=== PATIENT | male | born 1970 | race Caucasian/White ===

== ENCOUNTER 2020-08-02 11:45 | Emergency (ER) | payer MEDICAID ==
[~2020-08-02] VITALS: Ht 170.2 cm; Wt 86.4 kg
[2020-08-02 12:55] LABS: COVID AG,FIA SOURCE NASOPHARYNGEAL
[2020-08-02 13:38] LABS: BASOPHILS % (AUTO) 1.6 % (0.0-2.0); EOSINOPHILS % (AUTO) 1.5 % (1.0-6.0); HEMATOCRIT 39.4 % (41-53); HEMOGLOBIN 13.4 g/dL (13.5-17.5); LYMPHOCYTES # (AUTO) 1.3 K/uL (1.0-4.8); LYMPHOCYTES % (AUTO) 27.5 % (22.0-44.0); MEAN CORPUSCULAR HEMOGLOBIN 33.5 pg (26.0-34.0); MEAN CORPUSCULAR VOLUME 99 fL (80-100); MONOCYTES # (AUTO) 0.4 K/uL (0.1-1.0); NEUTROPHILS # (AUTO) 2.9 K/uL (1.8-7.7); NEUTROPHILS % (AUTO) 61.4 % (40.0-70.0); RED CELL DISTRIBUTION WIDTH 14.8 % (11.5-14.5)
[2020-08-02 13:50] LABS: ANION GAP 6 mmol/L (8-16); CALCIUM, TOTAL 7.8 mg/dL (8.8-10.5); CARBON DIOXIDE 28 mmol/L (22-29); CHLORIDE 108 mmol/L (98-107); GLOMERULAR FILTR. RATE CALC > 60 mL/min (>60); GLUCOSE,RANDOM 111 mg/dL (70-110); POTASSIUM 3.7 mmol/L (3.5-5.1); SODIUM SERUM 142 mmol/L (136-145); UREA NITROGEN, BLOOD 10 mg/dL (7-18)
[2020-08-02 13:56] LABS: ALANINE AMINOTRANSFERASE 29 U/L (12-78); ALBUMIN 2.8 g/dL (3.4-5.0); ALKALINE PHOSPHATASE 116 U/L (46-116); ASPARTATE AMINOTRANSFERASE 64 U/L (15-37); BILIRUBIN,TOTAL 0.9 mg/dL (0.1-1.0); TOTAL PROTEIN, SERUM 7.5 g/dL (6.4-8.2)
[2020-08-02 14:20] LABS: PLATELET COUNT (AUTO) 94 K/uL (150-450)
[2020-08-02 17:22] VITALS: BP 115/79
== END 2020-08-02 17:24 | disposition home or self-care (01) ==
LOC: EMS 12:04
DX: R07.9 Chest pain, unspecified (principal); Z20.828 Contact with and (suspected) exposure to other viral communicable diseases
CPT/HCPCS: 36415; 71045; 80053; 84484; 85025; 87426; 93005; 99285; U0003

== ENCOUNTER 2021-03-08 18:16 | Emergency (ER) | payer MEDICAID ==
[~2021-03-08] VITALS: Ht 172.7 cm; Wt 86.4 kg
[2021-03-08] MEDS ORDERED: PERTUSS(ACELL),DIPH,TET VAC/PF 0.5 ML SYRINGE IM. ONE (19:45)
[2021-03-08 20:49] VITALS: BP 110/63
== END 2021-03-08 20:53 | disposition home or self-care (01) ==
LOC: EMS 18:19
DX: S81.811A Laceration without foreign body, right lower leg, initial encounter (principal); W22.8XXA Striking against or struck by other objects, initial encounter; Y93.89 Activity, other specified; Y92.89 Other specified places as the place of occurrence of the external cause; Y99.8 Other external cause status
CPT/HCPCS: 90471; 90715; 99283

== ENCOUNTER 2021-06-28 21:02 | Emergency (ER) | payer MEDICAID ==
[~2021-06-28] VITALS: Ht 170.2 cm; Wt 86.4 kg
[2021-06-28] MEDS ORDERED: SODIUM CHLORIDE 0.9% 1,000 ML IV ONE (22:15)
[2021-06-28] MEDS ORDERED: ONDANSETRON HCL 4 MG/2 ML VIAL IVP ONE (22:15)
[2021-06-28] MEDS ORDERED: MAG HYDROX/AL HYDROX/SIMETH ES 30 ML SUSPENSION UDCUP PO ONE (22:15)
[2021-06-28 22:29] LABS: EOSINOPHILS % (AUTO) 0.4 % (1.0-6.0); HEMATOCRIT 32.5 % (41-53); NEUTROPHILS # (AUTO) 3.5 K/uL (1.8-7.7)
[2021-06-28 22:38] LABS: BASOPHILS % (AUTO) 1.4 % (0.0-2.0); HEMOGLOBIN 10.9 g/dL (13.5-17.5); LYMPHOCYTES # (AUTO) 1.2 K/uL (1.0-4.8); LYMPHOCYTES % (AUTO) 22.2 % (22.0-44.0); MEAN CORPUSCULAR HEMOGLOBIN 31.9 pg (26.0-34.0); MEAN CORPUSCULAR HGB CONC 33.5 G/dL (31.0-37.0); MEAN CORPUSCULAR VOLUME 95 fL (80-100); MONOCYTES # (AUTO) 0.8 K/uL (0.1-1.0); MONOCYTES % (AUTO) 14.5 % (2.0-9.0); NEUTROPHILS % (AUTO) 61.5 % (40.0-70.0); RED BLOOD CELL COUNT(AUTO) 3.41 MIL/uL (4.50-5.90); RED CELL DISTRIBUTION WIDTH 17.1 % (11.5-14.5)
[2021-06-28 22:41] LABS: CALCIUM, TOTAL 7.5 mg/dL (8.8-10.5); CREATININE 1.32 mg/dL (0.60-1.30); POTASSIUM 3.6 mmol/L (3.5-5.1)
[2021-06-28 22:49] LABS: ALBUMIN 2.4 g/dL (3.4-5.0); BILIRUBIN,TOTAL 2.4 mg/dL (0.1-1.0)
[2021-06-28 23:18] LABS: PLATELET COUNT (AUTO) 61 K/uL (150-450)
[2021-06-29 02:16] LABS: GLUCOMETER DEV NAME(LOC) ERT.5; GLUCOSE,POINT OF CARE 117 MG/DL (70-110)
[2021-06-29 02:55] VITALS: BP 128/83
== END 2021-06-29 06:40 | disposition home or self-care (01) ==
LOC: EMS 21:05
DX: F10.129 Alcohol abuse with intoxication, unspecified (principal); Y90.8 Blood alcohol level of 240 mg/100 ml or more
CPT/HCPCS: 80053; 82962; 83690; 84484; 85025; 93005; 96361; 96374; 99284; G0480; J2405; 36415-L1; 36415-TC

== ENCOUNTER 2021-06-30 19:02 | Emergency (ER) | payer MEDICAID ==
[~2021-06-30] VITALS: Ht 170.2 cm; Wt 88.6 kg
[2021-06-30 21:39] LABS: ANION GAP 8 mmol/L (8-16); CALCIUM, TOTAL 7.5 mg/dL (8.8-10.5); CARBON DIOXIDE 28 mmol/L (22-29); CHLORIDE 111 mmol/L (98-107); CREATININE 1.12 mg/dL (0.60-1.30); GLOMERULAR FILTR. RATE CALC > 60 mL/min (>60); GLUCOSE,RANDOM 112 mg/dL (70-110); POTASSIUM 3.6 mmol/L (3.5-5.1); SODIUM SERUM 147 mmol/L (136-145); UREA NITROGEN, BLOOD 10 mg/dL (7-18)
[2021-06-30 21:43] LABS: EOSINOPHILS % (AUTO) 0.8 % (1.0-6.0); HEMATOCRIT 32.3 % (41-53); HEMOGLOBIN 10.8 g/dL (13.5-17.5); LYMPHOCYTES # (AUTO) 1.3 K/uL (1.0-4.8); LYMPHOCYTES % (AUTO) 25.7 % (22.0-44.0); MEAN CORPUSCULAR HEMOGLOBIN 31.7 pg (26.0-34.0); MEAN CORPUSCULAR HGB CONC 33.4 G/dL (31.0-37.0); MEAN CORPUSCULAR VOLUME 95 fL (80-100); MONOCYTES # (AUTO) 0.6 K/uL (0.1-1.0); MONOCYTES % (AUTO) 12.1 % (2.0-9.0); NEUTROPHILS # (AUTO) 2.9 K/uL (1.8-7.7); NEUTROPHILS % (AUTO) 59.4 % (40.0-70.0); PLATELET COUNT (AUTO) 59 K/uL (150-450); RED CELL DISTRIBUTION WIDTH 18.1 % (11.5-14.5)
[2021-06-30 21:52] LABS: ALANINE AMINOTRANSFERASE 40 U/L (12-78); ALBUMIN 2.4 g/dL (3.4-5.0); ALKALINE PHOSPHATASE 183 U/L (46-116); ASPARTATE AMINOTRANSFERASE 194 U/L (15-37); BILIRUBIN,TOTAL 2.5 mg/dL (0.1-1.0); TOTAL PROTEIN, SERUM 7.8 g/dL (6.4-8.2)
[2021-06-30 23:30] VITALS: BP 124/79
== END 2021-07-01 00:25 | disposition home or self-care (01) ==
LOC: EMS 19:02
DX: F10.129 Alcohol abuse with intoxication, unspecified (principal)
CPT/HCPCS: 36415; 80053; 84484; 85025; 93005; 99284; G0480

== ENCOUNTER 2021-07-01 19:35 | Emergency (ER) | payer MEDICAID ==
[~2021-07-01] VITALS: Ht 172.7 cm; Wt 88.6 kg
[2021-07-01 19:57] VITALS: BP 109/72
== END 2021-07-01 21:30 | disposition left against medical advice (07) ==
LOC: EMS 19:35
DX: F10.129 Alcohol abuse with intoxication, unspecified (principal); Y90.9 Presence of alcohol in blood, level not specified; Z53.21 Procedure and treatment not carried out due to patient leaving prior to being seen by health care provider

== ENCOUNTER 2021-08-28 19:11 | Emergency (ER) | payer MEDICAID ==
[~2021-08-28] VITALS: Ht 170.2 cm; Wt 90.9 kg
[2021-08-28 21:03] LABS: BASOPHILS % (AUTO) 0.3 % (0.0-2.0); EOSINOPHILS % (AUTO) 0.7 % (1.0-6.0); HEMOGLOBIN 11.9 g/dL (13.5-17.5); LYMPHOCYTES # (AUTO) 2.3 K/uL (1.0-4.8); LYMPHOCYTES % (AUTO) 37.1 % (22.0-44.0); MEAN CORPUSCULAR HEMOGLOBIN 31.7 pg (26.0-34.0); MEAN CORPUSCULAR HGB CONC 34.1 G/dL (31.0-37.0); MEAN CORPUSCULAR VOLUME 93 fL (80-100); MONOCYTES # (AUTO) 0.6 K/uL (0.1-1.0); MONOCYTES % (AUTO) 9.4 % (2.0-9.0); NEUTROPHILS # (AUTO) 3.2 K/uL (1.8-7.7); NEUTROPHILS % (AUTO) 52.5 % (40.0-70.0); RED BLOOD CELL COUNT(AUTO) 3.76 MIL/uL (4.50-5.90); RED CELL DISTRIBUTION WIDTH 15.6 % (11.5-14.5)
[2021-08-28 21:11] LABS: PLATELET COUNT (AUTO) 68 K/uL (150-450)
[2021-08-28 21:21] LABS: ANION GAP 9 mmol/L (8-16); CARBON DIOXIDE 28 mmol/L (22-29); CHLORIDE 113 mmol/L (98-107); CREATININE 1.08 mg/dL (0.60-1.30); GLOMERULAR FILTR. RATE CALC > 60 mL/min (>60); GLUCOSE,RANDOM 102 mg/dL (70-110); POTASSIUM 3.6 mmol/L (3.5-5.1); SODIUM SERUM 150 mmol/L (136-145); UREA NITROGEN, BLOOD 8 mg/dL (7-18)
[2021-08-28 21:25] LABS: ALANINE AMINOTRANSFERASE 17 U/L (12-78); ALBUMIN 2.3 g/dL (3.4-5.0); ALKALINE PHOSPHATASE 176 U/L (46-116); ASPARTATE AMINOTRANSFERASE 55 U/L (15-37); BILIRUBIN,TOTAL 1.1 mg/dL (0.1-1.0); TOTAL PROTEIN, SERUM 7.5 g/dL (6.4-8.2)
[2021-09-02 06:39] VITALS: BP 114/80
== END 2021-08-29 02:28 | disposition home or self-care (01) ==
LOC: EMS 19:12
DX: F10.229 Alcohol dependence with intoxication, unspecified (principal); Y90.8 Blood alcohol level of 240 mg/100 ml or more
CPT/HCPCS: 36415; 80053; 85025; 99283; G0480

== ENCOUNTER 2022-02-17 12:50 | Emergency (ER) | payer MEDICAID, OTHER ==
[~2022-02-17] VITALS: Ht 170.2 cm; Wt 84.1 kg
[2022-02-17 14:43] LABS: COVID AG,FIA SOURCE NASAL SWAB
[2022-02-17 15:00] LABS: RAPID GROUP A STREP NEGATIVE (NEGATIVE)
[2022-02-17 15:07] LABS: INFLUENZA TYPE A NEGATIVE FOR TYPE A (NEGATIVE)
[2022-02-17 15:57] LABS: INFLUENZA TYPE B NEGATIVE FOR TYPE B (NEGATIVE)
[2022-02-17 17:00] VITALS: BP 112/73
[2022-02-17] MEDS ORDERED: BENZ1LOZ50 PO (18:29)
== END 2022-02-17 19:08 | disposition home or self-care (01) ==
LOC: EMS 12:50
DX: J02.9 Acute pharyngitis, unspecified (principal); F10.20 Alcohol dependence, uncomplicated; D18.01 Hemangioma of skin and subcutaneous tissue; Z20.822 Contact with and (suspected) exposure to COVID-19
CPT/HCPCS: 87430; 87804; 99283

== ENCOUNTER 2022-02-25 20:21 | Inpatient (IN) | payer OTHER ==
[~2022-02-25] VITALS: Ht 167.6 cm; Wt 92.9 kg
[~2022-02-25 20:21] MED LIST: BENZ1LOZ50 PO
[2022-02-25 20:52] LABS: BASOPHILS % (AUTO) 2.7 % (0.0-2.0); EOSINOPHILS % (AUTO) 1.9 % (1.0-6.0); HEMATOCRIT 31.8 % (41-53); HEMOGLOBIN 10.6 g/dL (13.5-17.5); LYMPHOCYTES # (AUTO) 1.3 K/uL (1.0-4.8); LYMPHOCYTES % (AUTO) 28.5 % (22.0-44.0); MEAN CORPUSCULAR HEMOGLOBIN 33.3 pg (26.0-34.0); MEAN CORPUSCULAR HGB CONC 33.5 G/dL (31.0-37.0); MEAN CORPUSCULAR VOLUME 100 fL (80-100); MONOCYTES # (AUTO) 0.5 K/uL (0.1-1.0); MONOCYTES % (AUTO) 10.9 % (2.0-9.0); NEUTROPHILS # (AUTO) 2.5 K/uL (1.8-7.7); RED BLOOD CELL COUNT(AUTO) 3.19 MIL/uL (4.50-5.90); RED CELL DISTRIBUTION WIDTH 18.3 % (11.5-14.5)
[2022-02-25 21:01] LABS: ANION GAP 8 mmol/L (8-16); CALCIUM, TOTAL 7.7 mg/dL (8.8-10.5); CARBON DIOXIDE 28 mmol/L (22-29); CHLORIDE 106 mmol/L (98-107); CREATININE 1.09 mg/dL (0.60-1.30); GLUCOSE,RANDOM 123 mg/dL (70-110); POTASSIUM 3.4 mmol/L (3.5-5.1); SODIUM SERUM 142 mmol/L (136-145); UREA NITROGEN, BLOOD 8 mg/dL (7-18)
[2022-02-25 21:06] LABS: GLOMERULAR FILTR. RATE CALC > 60 mL/min (>60)
[2022-02-25 21:09] LABS: ALANINE AMINOTRANSFERASE 34 U/L (12-78); ALBUMIN 2.2 g/dL (3.4-5.0); ALKALINE PHOSPHATASE 145 U/L (46-116); ASPARTATE AMINOTRANSFERASE 134 U/L (15-37); BILIRUBIN,TOTAL 2.9 mg/dL (0.1-1.0); LIPASE 212 U/L (73-393)
[2022-02-25 21:10] LABS: PLATELET COUNT (AUTO) 42 K/uL (150-450); PLATELET MORPHOLOGY COMMENT LARGE PLTS PRESENT
[2022-02-25] MEDS ORDERED: MAG HYDROX/AL HYDROX/SIMETH 30 ML SUSP UDCUP PO ONE (21:45)
[2022-02-25] MEDS ORDERED: FAMOTIDINE 10 MG/ML 2 ML VIAL IVP ONE (21:45)
[2022-02-25] MEDS ORDERED: KETOROLAC TROMETHAMINE 30 MG/ML VIAL IVP ONE (21:45)
[2022-02-25 23:12] LABS: COVID AG,FIA SOURCE NASOPHARYNGEAL
[2022-02-25] MEDS ORDERED: LACTULOSE 20 GM/30 ML SOLUTION UDCUP PO ONE (23:15)
[2022-02-25] MEDS ORDERED: SODIUM CHLORIDE 0.9% 100 ML ONE (23:17)
[2022-02-25] MEDS ORDERED: IOHEXOL 350 MG/ML 100 ML VIAL ONE (23:17)
[2022-02-26] VITALS (7 sets, daily range): BP systolic 106–137; BP diastolic 70–93
[2022-02-26 00:56] LABS: INR 1.4 (0.9-1.1); PROTHROMBIN TIME 14.6 SEC (9.4-11.6)
[2022-02-26] MEDS ORDERED: 0.9% SODIUM CHLORIDE 10 ML SYRINGE IVP PRN (01:15)
[2022-02-26] MEDS ORDERED: ONDANSETRON HCL 4 MG/2 ML VIAL IVP PRN ×2 (01:15→02:00)
[2022-02-26] MEDS ORDERED: ZOLPIDEM TARTRATE 5 MG TABLET PO PRN ×2 (02:00)
[2022-02-26] MEDS ORDERED: BISACODYL 10 MG RECTAL RECTAL SUPPOSITORY PR PRN ×2 (02:00)
[2022-02-26] MEDS ORDERED: PHYTONADIONE 10 MG/1 ML AMP SQ ONE (02:00)
[2022-02-26] MEDS ORDERED: ALBUTEROL SULFATE 2.5 MG/0.5 ML NEB SOLUTION NEB PRN ×2 (02:00)
[2022-02-26] MEDS ORDERED: MORPHINE SULFATE 2 MG/ML SYRINGE IVP PRN ×2 (02:00)
[2022-02-26] MEDS ORDERED: OxyCODONE HCL/ACETAMINOPHEN 5-325 MG TABLET PO PRN (02:00)
[2022-02-26] MEDS ORDERED: 1: MAGNESIUM SULFATE 2 GM, MVI, ADULT NO.1 WITH VIT K 10 ML, THIAMINE 100 MG, FOLIC ACID IV SCH ×5 (02:00)
[2022-02-26] MEDS ORDERED: MAGNESIUM HYDROXIDE SUSPENSION 30 ML UDCUP PO PRN ×2 (02:00)
[2022-02-26] MEDS ORDERED: ACETAMINOPHEN 325 MG TABLET PO PRN ×2 (02:00)
[2022-02-26] MEDS ORDERED: HYDROCODONE/ACETAMINOPHEN 5-325 MG TABLET PO PRN (02:00)
[2022-02-26] MEDS ORDERED: IPRATROPIUM BROMIDE 0.5 MG/2.5 ML NEB SOLUTION NEB PRN ×2 (02:00)
[2022-02-26] MEDS ORDERED: HEPARIN SODIUM,PORCINE 5,000 UNITS/ML VIAL IVP PRN ×2 (02:30)
[2022-02-26] MEDS ORDERED: HEPARIN SODIUM,PORCINE 5,000 UNITS/ML VIAL IVP ONE (02:30)
[2022-02-26] MEDS ORDERED: HEPARIN SODIUM 25000 UNITS/D5W 250 ML IV PRN (02:30)
[2022-02-26] MEDS: ChlordiazePOXIDE HCL 25 MG CAPSULE PO PRN ×3 (03:57→12:19)
[2022-02-26] MEDS: LACTULOSE 20 GM/30 ML SOLUTION UDCUP PO SCH ×4 (06:13→23:40)
[2022-02-26] MEDS ORDERED: HEPARIN SODIUM,PORCINE 5,000 UNITS/ML VIAL SQ SCH (08:00)
[2022-02-26] MEDS: PANTOPRAZOLE SODIUM 40 MG/VIAL IVP SCH (08:53)
[2022-02-26] MEDS ORDERED: DOCUSATE SODIUM 100 MG CAPSULE PO SCH (09:00)
[2022-02-26] MEDS ORDERED: PANTOPRAZOLE SODIUM 40 MG/VIAL IVP SCH (09:00)
[2022-02-26] MEDS ORDERED: DOCUSATE SODIUM 100 MG/10 ML LIQUID UDCUP PO SCH (09:00)
[2022-02-26 11:17] LABS: BASOPHILS % (AUTO) 0.3 % (0.0-2.0); EOSINOPHILS % (AUTO) 2.6 % (1.0-6.0); HEMATOCRIT 30.8 % (41-53); HEMOGLOBIN 10.3 g/dL (13.5-17.5); LYMPHOCYTES # (AUTO) 0.9 K/uL (1.0-4.8); LYMPHOCYTES % (AUTO) 24.7 % (22.0-44.0); MEAN CORPUSCULAR HEMOGLOBIN 33.7 pg (26.0-34.0); MEAN CORPUSCULAR HGB CONC 33.4 G/dL (31.0-37.0); MEAN CORPUSCULAR VOLUME 101 fL (80-100); MONOCYTES # (AUTO) 0.5 K/uL (0.1-1.0); MONOCYTES % (AUTO) 13.2 % (2.0-9.0); NEUTROPHILS # (AUTO) 2.3 K/uL (1.8-7.7); NEUTROPHILS % (AUTO) 59.2 % (40.0-70.0); PLATELET COUNT (AUTO) 33 K/uL (150-450); RED BLOOD CELL COUNT(AUTO) 3.05 MIL/uL (4.50-5.90); RED CELL DISTRIBUTION WIDTH 17.7 % (11.5-14.5)
[2022-02-26] MEDS: LORazepam 2 MG/ML VIAL IVP PRN ×2 (18:31→23:41)
[2022-02-27] MEDS: ONDANSETRON HCL 4 MG/2 ML VIAL IVP PRN (02:24)
[2022-02-27] MEDS: LORazepam 2 MG/ML VIAL IVP PRN ×6 (02:28→23:16)
[2022-02-27 03:58] VITALS: BP 119/91
[2022-02-27 05:51] LABS: BASOPHILS % (AUTO) 1.3 % (0.0-2.0); EOSINOPHILS % (AUTO) 1.6 % (1.0-6.0); HEMATOCRIT 29.2 % (41-53); HEMOGLOBIN 9.9 g/dL (13.5-17.5); LYMPHOCYTES # (AUTO) 0.4 K/uL (1.0-4.8); LYMPHOCYTES % (AUTO) 14.8 % (22.0-44.0); MEAN CORPUSCULAR HEMOGLOBIN 33.8 pg (26.0-34.0); MEAN CORPUSCULAR HGB CONC 33.8 G/dL (31.0-37.0); MEAN CORPUSCULAR VOLUME 100 fL (80-100); MONOCYTES # (AUTO) 0.5 K/uL (0.1-1.0); MONOCYTES % (AUTO) 15.5 % (2.0-9.0); NEUTROPHILS % (AUTO) 66.8 % (40.0-70.0); PLATELET COUNT (AUTO) 23 K/uL (150-450); RED BLOOD CELL COUNT(AUTO) 2.92 MIL/uL (4.50-5.90); RED CELL DISTRIBUTION WIDTH 17.6 % (11.5-14.5)
[2022-02-27 06:04] LABS: ALANINE AMINOTRANSFERASE 33 U/L (12-78); ALKALINE PHOSPHATASE 119 U/L (46-116); ANION GAP 7 mmol/L (8-16); ASPARTATE AMINOTRANSFERASE 127 U/L (15-37); BILIRUBIN,TOTAL 3.9 mg/dL (0.1-1.0); CALCIUM, TOTAL 7.6 mg/dL (8.8-10.5); CARBON DIOXIDE 25 mmol/L (22-29); CHLORIDE 106 mmol/L (98-107); CREATININE 1.13 mg/dL (0.60-1.30); GLOMERULAR FILTR. RATE CALC > 60 mL/min (>60); GLUCOSE,RANDOM 106 mg/dL (70-110); POTASSIUM 3.6 mmol/L (3.5-5.1); SODIUM SERUM 138 mmol/L (136-145); TOTAL PROTEIN, SERUM 7.5 g/dL (6.4-8.2); UREA NITROGEN, BLOOD 7 mg/dL (7-18)
[2022-02-27] MEDS: LACTULOSE 20 GM/30 ML SOLUTION UDCUP PO SCH ×4 (06:39→23:16)
[2022-02-27] MEDS ORDERED: ChlordiazePOXIDE HCL 25 MG CAPSULE PO PRN (07:00)
[2022-02-27 07:43] VITALS: BP 132/74
[2022-02-27] MEDS ORDERED: ChlordiazePOXIDE HCL 25 MG CAPSULE PO SCH (09:00)
[2022-02-27] MEDS: PANTOPRAZOLE SODIUM 40 MG/VIAL IVP SCH (10:15)
[2022-02-27] MEDS: MULTIVITAMINS WITH MINERALS, THERAPEUTIC TABLET PO SCH (10:16)
[2022-02-27 11:11] VITALS: BP 133/87
[2022-02-27 15:26] VITALS: BP 143/95
[2022-02-27 19:52] VITALS: BP 141/90
[2022-02-27 23:43] VITALS: BP 126/95
[2022-02-28] MEDS: LORazepam 2 MG/ML VIAL IVP PRN ×5 (02:29→21:26)
[2022-02-28 03:45] VITALS: BP 122/85
[2022-02-28] MEDS: LACTULOSE 20 GM/30 ML SOLUTION UDCUP PO SCH ×3 (06:41→17:07)
[2022-02-28 07:12] VITALS: BP 140/86
[2022-02-28] MEDS: MULTIVITAMINS WITH MINERALS, THERAPEUTIC TABLET PO SCH (08:29)
[2022-02-28] MEDS: PANTOPRAZOLE SODIUM 40 MG/VIAL IVP SCH (08:30)
[2022-02-28 11:41] VITALS: BP 142/91
[2022-02-28 15:11] VITALS: BP 129/102
[2022-02-28 19:33] VITALS: BP 133/89
[2022-02-28] MEDS ORDERED: DiphenhydrAMINE HCL 50 MG/ML VIAL IVP ONE (22:30)
[2022-02-28] MEDS ORDERED: HALOPERIDOL LACTATE 5 MG/ML VIAL IM ONE (22:30)
[2022-03-01] MEDS: LACTULOSE 20 GM/30 ML SOLUTION UDCUP PO SCH ×4 (00:05→18:26)
[2022-03-01] MEDS: LORazepam 2 MG/ML VIAL IVP PRN (03:34)
[2022-03-01] MEDS ORDERED: ChlordiazePOXIDE HCL 10 MG CAPSULE PO PRN (07:00)
[2022-03-01] MEDS ORDERED: ChlordiazePOXIDE HCL 10 MG CAPSULE PO SCH (09:00)
[2022-03-01] MEDS: MULTIVITAMINS WITH MINERALS, THERAPEUTIC TABLET PO SCH (09:00)
[2022-03-01] MEDS: PANTOPRAZOLE SODIUM 40 MG/VIAL IVP SCH (09:00)
[2022-03-01 09:12] LABS: BASOPHILS % (AUTO) 0.6 % (0.0-2.0); EOSINOPHILS % (AUTO) 1.7 % (1.0-6.0); HEMATOCRIT 32.7 % (41-53); HEMOGLOBIN 10.9 g/dL (13.5-17.5); LYMPHOCYTES # (AUTO) 0.5 K/uL (1.0-4.8); LYMPHOCYTES % (AUTO) 10.4 % (22.0-44.0); MEAN CORPUSCULAR HEMOGLOBIN 33.8 pg (26.0-34.0); MEAN CORPUSCULAR HGB CONC 33.3 G/dL (31.0-37.0); MEAN CORPUSCULAR VOLUME 102 fL (80-100); MONOCYTES # (AUTO) 0.5 K/uL (0.1-1.0); MONOCYTES % (AUTO) 10.5 % (2.0-9.0); NEUTROPHILS # (AUTO) 3.8 K/uL (1.8-7.7); NEUTROPHILS % (AUTO) 76.8 % (40.0-70.0); RED BLOOD CELL COUNT(AUTO) 3.22 MIL/uL (4.50-5.90); RED CELL DISTRIBUTION WIDTH 17.5 % (11.5-14.5)
[2022-03-01 09:30] LABS: ALBUMIN 2.3 g/dL (3.4-5.0); BILIRUBIN,TOTAL 5.2 mg/dL (0.1-1.0); CALCIUM, TOTAL 8.6 mg/dL (8.8-10.5); CREATININE 1.26 mg/dL (0.60-1.30); POTASSIUM 3.7 mmol/L (3.5-5.1)
[2022-03-01 10:01] LABS: PLATELET COUNT (AUTO) 46 K/uL (150-450)
[2022-03-01 15:38] VITALS: BP 119/76
[2022-03-01 20:15] VITALS: BP 132/85
[2022-03-02] MEDS: LACTULOSE 20 GM/30 ML SOLUTION UDCUP PO SCH ×5 (00:11→23:46)
[2022-03-02 00:23] VITALS: BP 121/84
[2022-03-02 04:07] VITALS: BP 120/75
[2022-03-02] MEDS ORDERED: ChlordiazePOXIDE HCL 10 MG CAPSULE PO PRN (07:00)
[2022-03-02 07:29] VITALS: BP 125/73
[2022-03-02] MEDS: MULTIVITAMINS WITH MINERALS, THERAPEUTIC TABLET PO SCH (08:37)
[2022-03-02] MEDS: PANTOPRAZOLE SODIUM 40 MG/VIAL IVP SCH (08:37)
[2022-03-02 11:01] VITALS: BP 113/79
[2022-03-02] MEDS ORDERED: MULT-248 PO (13:51)
[2022-03-02] MEDS ORDERED: LACT10SO10 PO (13:51)
[2022-03-02] MEDS ORDERED: PANT-31 PO (13:52)
[2022-03-02] MEDS ORDERED: ACET-2247 PO (13:54)
[2022-03-02] MEDS ORDERED: AUD NEB (13:55)
[2022-03-02] MEDS ORDERED: IPRNEB IH (13:57)
[2022-03-02] MEDS ORDERED: ONDA-104 PO (13:57)
[2022-03-02 15:31] VITALS: BP 124/78
[2022-03-02 19:29] VITALS: BP 113/75
[2022-03-03] VITALS (7 sets, daily range): BP systolic 128–161; BP diastolic 61–94
[2022-03-03] MEDS: LACTULOSE 20 GM/30 ML SOLUTION UDCUP PO SCH ×5 (05:50→23:13)
[2022-03-03] MEDS: PANTOPRAZOLE SODIUM 40 MG DR TABLET PO SCH (08:33)
[2022-03-03] MEDS: MULTIVITAMINS WITH MINERALS, THERAPEUTIC TABLET PO SCH (08:34)
[2022-03-03 14:47] LABS: CALCIUM, TOTAL 8.5 mg/dL (8.8-10.5); CREATININE 1.62 mg/dL (0.60-1.30); POTASSIUM 3.7 mmol/L (3.5-5.1)
[2022-03-03] MEDS ORDERED: LORazepam 2 MG/ML VIAL IVP ONE (16:00)
[2022-03-03] MEDS ORDERED: LORazepam 2 MG/ML VIAL IVP PRN (17:00)
[2022-03-04] MEDS ORDERED: HALOPERIDOL LACTATE 5 MG/ML VIAL IM ONE (03:45)
[2022-03-04 05:04] VITALS: BP 137/81
[2022-03-04] MEDS: LACTULOSE 20 GM/30 ML SOLUTION UDCUP PO SCH ×3 (06:00→18:00)
[2022-03-04 07:23] VITALS: BP 137/80
[2022-03-04 08:22] LABS: HEMATOCRIT 30.3 % (41-53); HEMOGLOBIN 10.2 g/dL (13.5-17.5); MEAN CORPUSCULAR HEMOGLOBIN 34.3 pg (26.0-34.0); MEAN CORPUSCULAR HGB CONC 33.7 G/dL (31.0-37.0); MEAN CORPUSCULAR VOLUME 102 fL (80-100); PLATELET COUNT (AUTO) 63 K/uL (150-450); RED BLOOD CELL COUNT(AUTO) 2.98 MIL/uL (4.50-5.90); RED CELL DISTRIBUTION WIDTH 18.1 % (11.5-14.5)
[2022-03-04] MEDS: PANTOPRAZOLE SODIUM 40 MG DR TABLET PO SCH (08:41)
[2022-03-04] MEDS: MULTIVITAMINS WITH MINERALS, THERAPEUTIC TABLET PO SCH (08:41)
[2022-03-04 09:38] LABS: BAND NEUTROPHILS % (MANUAL) 2 % (0-5); LYMPHOCYTES % (MANUAL) 17 % (22-44); MONOCYTES % (MANUAL) 8 % (2-9); SEGMENTED NEUTROPHILS % 73 % (40-70)
[2022-03-04 10:54] VITALS: BP 136/68
[2022-03-04] MEDS ORDERED: SODIUM CHLORIDE 0.9% 1,000 ML IV ONE (12:30)
[2022-03-04 15:27] VITALS: BP 140/82
[2022-03-04 19:58] VITALS: BP 121/78
[2022-03-04] MEDS: CefTRIAXone 1 GM/DEXTROSE 50 ML IV SCH (20:57)
[2022-03-04 23:46] VITALS: BP 129/80
[2022-03-05] MEDS: LACTULOSE 20 GM/30 ML SOLUTION UDCUP PO SCH ×4 (00:10→18:02)
[2022-03-05 04:30] VITALS: BP 139/89
[2022-03-05 06:28] LABS: CALCIUM, TOTAL 7.7 mg/dL (8.8-10.5); CREATININE 1.39 mg/dL (0.60-1.30); POTASSIUM 3.8 mmol/L (3.5-5.1)
[2022-03-05 07:59] VITALS: BP 99/62
[2022-03-05] MEDS: MULTIVITAMINS WITH MINERALS, THERAPEUTIC TABLET PO SCH (09:03)
[2022-03-05] MEDS: PANTOPRAZOLE SODIUM 40 MG DR TABLET PO SCH (09:03)
[2022-03-05 11:56] VITALS: BP 125/76
[2022-03-05 16:30] VITALS: BP 120/79
[2022-03-05 20:04] VITALS: BP 120/84
[2022-03-05] MEDS ORDERED: SODIUM CHLORIDE 0.9% 250 ML IV ONE (20:52)
[2022-03-05] MEDS: CefTRIAXone 1 GM/DEXTROSE 50 ML IV SCH (21:02)
[2022-03-05 23:59] VITALS: BP 121/82
[2022-03-06] MEDS: LACTULOSE 20 GM/30 ML SOLUTION UDCUP PO SCH ×4 (00:49→17:55)
[2022-03-06] MEDS: ONDANSETRON HCL 4 MG/2 ML VIAL IVP PRN (03:13)
[2022-03-06 04:46] VITALS: BP 119/75
[2022-03-06 07:30] VITALS: BP 119/71
[2022-03-06] MEDS: PANTOPRAZOLE SODIUM 40 MG DR TABLET PO SCH (08:20)
[2022-03-06] MEDS: MULTIVITAMINS WITH MINERALS, THERAPEUTIC TABLET PO SCH (08:20)
[2022-03-06 11:16] VITALS: BP 99/61
[2022-03-06 16:13] VITALS: BP 116/66
[2022-03-06 20:35] VITALS: BP 124/69
[2022-03-06] MEDS: CefTRIAXone 1 GM/DEXTROSE 50 ML IV SCH (21:38)
[2022-03-07] MEDS: LACTULOSE 20 GM/30 ML SOLUTION UDCUP PO SCH ×2 (00:10→06:19)
[2022-03-07 00:39] VITALS: BP 114/70
[2022-03-07 04:40] VITALS: BP 108/62
[2022-03-07] MEDS: PANTOPRAZOLE SODIUM 40 MG DR TABLET PO SCH (08:29)
[2022-03-07] MEDS: MULTIVITAMINS WITH MINERALS, THERAPEUTIC TABLET PO SCH (08:29)
[2022-03-07 08:48] VITALS: BP 131/80
== END 2022-03-07 09:10 | disposition left against medical advice (07) | DRG 279 ==
LOC: EMS 20:23 → 5S 02-26 00:58
PROVIDERS: ADMIT Hospitalist; ATTEND Hospitalist
DX: K72.90 Hepatic failure, unspecified without coma (principal); I81 Portal vein thrombosis; D61.818 Other pancytopenia; N17.9 Acute kidney failure, unspecified; D68.9 Coagulation defect, unspecified; F10.131 Alcohol abuse with withdrawal delirium; E66.9 Obesity, unspecified; N28.1 Cyst of kidney, acquired; N28.9 Disorder of kidney and ureter, unspecified; K74.60 Unspecified cirrhosis of liver; F20.9 Schizophrenia, unspecified; Z20.822 Contact with and (suspected) exposure to COVID-19; Y90.9 Presence of alcohol in blood, level not specified; E87.6 Hypokalemia; D69.6 Thrombocytopenia, unspecified; Z68.33 Body mass index [BMI] 33.0-33.9, adult
CPT/HCPCS: 70450; 71045; 74177; 76700; 80048; 80053; 80202; 82140; 83690; 83735; 84484; 85025; 85610; 85730; 87040; 87077; 87186; 87205; 93005; 97116; 97162; 97530; 99285; C9113; G0480; J0696; J1200; J1630; J1644; J1885; J2060; J2405; J3411; J3430; J3475; J3490; J7030; J7050; Q9967; 36415-L1; 36415-TC

== ENCOUNTER 2022-08-13 17:58 | Emergency (ER) | payer OTHER ==
[~2022-08-13] VITALS: Ht 170.2 cm; Wt 86.4 kg
[~2022-08-13 17:58] MED LIST changes: +ACET-2247 PO; +AUD NEB; -BENZ1LOZ50 PO; +IPRNEB IH; +LACT10SO10 PO; +MULT-248 PO; +ONDA-104 PO; +PANT-31 PO
[2022-08-13 19:16] LABS: BASOPHILS % (AUTO) 0.5 % (0.0-2.0); EOSINOPHILS % (AUTO) 0.2 % (1.0-6.0); HEMATOCRIT 34.3 % (41-53); LYMPHOCYTES # (AUTO) 0.5 K/uL (1.0-4.8); LYMPHOCYTES % (AUTO) 9.8 % (22.0-44.0); MEAN CORPUSCULAR HEMOGLOBIN 30.6 pg (26.0-34.0); MEAN CORPUSCULAR HGB CONC 32.2 G/dL (31.0-37.0); MEAN CORPUSCULAR VOLUME 95 fL (80-100); MONOCYTES # (AUTO) 0.5 K/uL (0.1-1.0); MONOCYTES % (AUTO) 10.2 % (2.0-9.0); NEUTROPHILS # (AUTO) 4.1 K/uL (1.8-7.7); NEUTROPHILS % (AUTO) 79.3 % (40.0-70.0)
[2022-08-13 19:23] LABS: ANION GAP 8 mmol/L (8-16); CALCIUM, TOTAL 8.7 mg/dL (8.8-10.5); CARBON DIOXIDE 28 mmol/L (22-29); CHLORIDE 103 mmol/L (98-107); CREATININE 1.16 mg/dL (0.60-1.30); GLUCOSE,RANDOM 116 mg/dL (70-110); POTASSIUM 3.7 mmol/L (3.5-5.1); SODIUM SERUM 139 mmol/L (136-145); UREA NITROGEN, BLOOD 10 mg/dL (7-18)
[2022-08-13 19:24] LABS: GLOMERULAR FILTR. RATE CALC > 60 mL/min (>60)
[2022-08-13 19:27] LABS: ALANINE AMINOTRANSFERASE 25 U/L (12-78); ALBUMIN 2.9 g/dL (3.4-5.0); ALKALINE PHOSPHATASE 191 U/L (46-116); ASPARTATE AMINOTRANSFERASE 81 U/L (15-37); BILIRUBIN,TOTAL 3.3 mg/dL (0.1-1.0); TOTAL PROTEIN, SERUM 8.9 g/dL (6.4-8.2)
[2022-08-13] MEDS ORDERED: OMEP20CA12 PO (19:36)
[2022-08-13 19:46] LABS: PLATELET COUNT (AUTO) 61 K/uL (150-450); PLATELET MORPHOLOGY COMMENT LARGE PLTS PRESENT
[2022-08-13] MEDS ORDERED: PANTOPRAZOLE SODIUM 40 MG DR TABLET PO ONE (22:15)
[2022-08-13] MEDS ORDERED: ONDANSETRON HCL 4 MG TABLET PO ONE (22:15)
[2022-08-13 22:36] VITALS: BP 149/84
== END 2022-08-13 22:38 | disposition home or self-care (01) ==
LOC: EMS 18:21
DX: K29.20 Alcoholic gastritis without bleeding (principal); F10.20 Alcohol dependence, uncomplicated
CPT/HCPCS: 99285; 71045; 80053; 84484; 85025; 36415; 93005; Q0162

== ENCOUNTER 2022-11-29 11:33 | Inpatient (IN) | payer OTHER ==
[~2022-11-29] VITALS: Ht 170.2 cm; Wt 93.0 kg
[~2022-11-29 11:33] MED LIST changes: +OMEP20CA12 PO; -PANT-31 PO
[2022-11-29] MEDS ORDERED: SODIUM CHLORIDE 0.9% 1,000 ML IV ONE (12:30)
[2022-11-29] MEDS ORDERED: ONDANSETRON HCL 4 MG/2 ML VIAL IVP ONE (12:30)
[2022-11-29 13:08] LABS: BASOPHILS % (AUTO) 0.8 % (0.0-2.0); EOSINOPHILS % (AUTO) 4.1 % (1.0-6.0); HEMATOCRIT 34.5 % (41-53); HEMOGLOBIN 11.2 g/dL (13.5-17.5); LYMPHOCYTES % (AUTO) 19.5 % (22.0-44.0); MEAN CORPUSCULAR HEMOGLOBIN 29.7 pg (26.0-34.0); MEAN CORPUSCULAR HGB CONC 32.5 G/dL (31.0-37.0); MEAN CORPUSCULAR VOLUME 92 fL (80-100); MONOCYTES # (AUTO) 0.6 K/uL (0.1-1.0); MONOCYTES % (AUTO) 11.7 % (2.0-9.0); NEUTROPHILS # (AUTO) 3.3 K/uL (1.8-7.7); NEUTROPHILS % (AUTO) 63.9 % (40.0-70.0); PLATELET COUNT (AUTO) 98 K/uL (150-450); RED BLOOD CELL COUNT(AUTO) 3.77 MIL/uL (4.50-5.90); RED CELL DISTRIBUTION WIDTH 19.1 % (11.5-14.5)
[2022-11-29 13:20] LABS: ALANINE AMINOTRANSFERASE 24 U/L (12-78); ALBUMIN 2.4 g/dL (3.4-5.0); ALKALINE PHOSPHATASE 256 U/L (46-116); ANION GAP 4 mmol/L (8-16); ASPARTATE AMINOTRANSFERASE 40 U/L (15-37); CALCIUM, TOTAL 8.5 mg/dL (8.8-10.5); CARBON DIOXIDE 27 mmol/L (22-29); CHLORIDE 108 mmol/L (98-107); CREATININE 0.96 mg/dL (0.60-1.30); GLOMERULAR FILTR. RATE CALC > 60 mL/min (>60); GLUCOSE,RANDOM 50 mg/dL (70-110); LIPASE 746 U/L (73-393); POTASSIUM 3.9 mmol/L (3.5-5.1); SODIUM SERUM 139 mmol/L (136-145); TOTAL PROTEIN, SERUM 6.7 g/dL (6.4-8.2); UREA NITROGEN, BLOOD 13 mg/dL (7-18)
[2022-11-29 15:11] LABS: GLUCOMETER DEV NAME(LOC) ERT.5; GLUCOSE,POINT OF CARE 72 MG/DL (70-110)
[2022-11-29] MEDS ORDERED: MORPHINE SULFATE 4 MG/ML SYRINGE IVP PRN (20:00)
[2022-11-29] MEDS ORDERED: ACETAMINOPHEN 325 MG TABLET PO PRN (20:00)
[2022-11-29] MEDS ORDERED: IPRATROPIUM BROMIDE 0.5 MG/2.5 ML NEB SOLUTION NEB PRN (20:00)
[2022-11-29] MEDS ORDERED: ALBUTEROL SULFATE 2.5 MG/0.5 ML NEB SOLUTION NEB PRN (20:00)
[2022-11-29] MEDS ORDERED: OxyCODONE HCL/ACETAMINOPHEN 5-325 MG TABLET PO PRN (20:00)
[2022-11-29] MEDS ORDERED: MAGNESIUM HYDROXIDE SUSPENSION 30 ML UDCUP PO PRN (20:00)
[2022-11-29] MEDS ORDERED: ZOLPIDEM TARTRATE 5 MG TABLET PO PRN (20:00)
[2022-11-29] MEDS ORDERED: BISACODYL 10 MG RECTAL RECTAL SUPPOSITORY PR PRN (20:00)
[2022-11-29] MEDS ORDERED: ONDANSETRON HCL 4 MG/2 ML VIAL IVP PRN (20:00)
[2022-11-29 20:04] LABS: COVID AG,FIA SOURCE NASOPHARYNGEAL
[2022-11-29] MEDS: DEXTROSE 5%-0.45% SODIUM CHL 1,000 ML IV SCH (20:29)
[2022-11-29 20:40] VITALS: BP 130/87
[2022-11-29] MEDS: DOCUSATE SODIUM 100 MG CAPSULE PO SCH (21:00)
[2022-11-29] MEDS: HEPARIN SODIUM,PORCINE 5,000 UNITS/ML VIAL SQ SCH (23:30)
[2022-11-30] MEDS ORDERED: MORPHINE SULFATE 2 MG/ML SYRINGE IVP PRN (01:31)
[2022-11-30] MEDS: DEXTROSE 5%-0.45% SODIUM CHL 1,000 ML IV SCH ×2 (04:15→12:12)
[2022-11-30 04:32] VITALS: BP 106/72
[2022-11-30 06:00] LABS: EOSINOPHILS % (AUTO) 10.6 % (1.0-6.0); HEMATOCRIT 30.9 % (41-53); HEMOGLOBIN 10.2 g/dL (13.5-17.5); LYMPHOCYTES # (AUTO) 1.2 K/uL (1.0-4.8); LYMPHOCYTES % (AUTO) 27.3 % (22.0-44.0); MEAN CORPUSCULAR VOLUME 91 fL (80-100); MONOCYTES # (AUTO) 0.5 K/uL (0.1-1.0); MONOCYTES % (AUTO) 10.9 % (2.0-9.0); NEUTROPHILS # (AUTO) 2.2 K/uL (1.8-7.7); NEUTROPHILS % (AUTO) 50.2 % (40.0-70.0); RED CELL DISTRIBUTION WIDTH 18.6 % (11.5-14.5)
[2022-11-30 06:13] LABS: ALANINE AMINOTRANSFERASE 19 U/L (12-78); ALBUMIN 1.9 g/dL (3.4-5.0); ALKALINE PHOSPHATASE 163 U/L (46-116); ANION GAP 5 mmol/L (8-16); ASPARTATE AMINOTRANSFERASE 38 U/L (15-37); BILIRUBIN,TOTAL 1.4 mg/dL (0.1-1.0); CALCIUM, TOTAL 7.6 mg/dL (8.8-10.5); CARBON DIOXIDE 25 mmol/L (22-29); CHLORIDE 108 mmol/L (98-107); CREATININE 1.01 mg/dL (0.60-1.30); GLOMERULAR FILTR. RATE CALC > 60 mL/min (>60); GLUCOSE,RANDOM 115 mg/dL (70-110); POTASSIUM 3.6 mmol/L (3.5-5.1); SODIUM SERUM 138 mmol/L (136-145); TOTAL PROTEIN, SERUM 5.6 g/dL (6.4-8.2); UREA NITROGEN, BLOOD 10 mg/dL (7-18)
[2022-11-30 06:24] LABS: AMYLASE 105 U/L (25-115); LIPASE 170 U/L (73-393)
[2022-11-30 08:12] VITALS: BP 84/54
[2022-11-30 08:13] VITALS: BP 93/63
[2022-11-30 08:13] LABS: PLATELET COUNT (AUTO) 84 K/uL (150-450)
[2022-11-30] MEDS: DOCUSATE SODIUM 100 MG CAPSULE PO SCH (08:20)
[2022-11-30] MEDS: HEPARIN SODIUM,PORCINE 5,000 UNITS/ML VIAL SQ SCH ×2 (08:20→16:21)
[2022-11-30] MEDS ORDERED: PANTOPRAZOLE SODIUM 40 MG/VIAL IVP SCH (09:00)
[2022-11-30 15:57] VITALS: BP 117/74
== END 2022-11-30 19:02 | disposition home or self-care (01) | DRG 280 ==
LOC: EMS 11:33 → 6S 18:48
PROVIDERS: ADMIT Hospitalist; ATTEND Hospitalist
DX: K70.30 Alcoholic cirrhosis of liver without ascites (principal); K85.90 Acute pancreatitis without necrosis or infection, unspecified; F10.20 Alcohol dependence, uncomplicated; J44.9 Chronic obstructive pulmonary disease, unspecified; K21.9 Gastro-esophageal reflux disease without esophagitis; Z20.822 Contact with and (suspected) exposure to COVID-19; Z79.899 Other long term (current) drug therapy
CPT/HCPCS: 74176; 76700; 80053; 82150; 82962; 83690; 84484; 85025; 93005; 99285; C9113; G0378; G0480; J1644; J2405

== ENCOUNTER 2023-03-28 21:16 | Emergency (ER) | payer OTHER ==
[~2023-03-28] VITALS: Ht 170.2 cm; Wt 93.2 kg
[~2023-03-28 21:16] MED LIST changes: -ACET-2247 PO; -AUD NEB; -IPRNEB IH; -LACT10SO10 PO; -MULT-248 PO; -OMEP20CA12 PO; -ONDA-104 PO; +PANT-31 PO; +PROP10TA72 PO
[2023-03-29] MEDS ORDERED: ACETAMINOPHEN 500 MG TABLET PO ONE (00:15)
[2023-03-29] MEDS ORDERED: ONDANSETRON HCL 4 MG TABLET PO ONE (00:15)
[2023-03-29 00:37] LABS: ANION GAP 5 mmol/L (8-16); CALCIUM, TOTAL 8.2 mg/dL (8.8-10.5); CARBON DIOXIDE 30 mmol/L (22-29); CHLORIDE 107 mmol/L (98-107); CREATININE 1.08 mg/dL (0.60-1.30); GLOMERULAR FILTR. RATE CALC > 60 mL/min (>60); GLUCOSE,RANDOM 108 mg/dL (70-110); POTASSIUM 4.1 mmol/L (3.5-5.1); SODIUM SERUM 142 mmol/L (136-145)
[2023-03-29 00:38] LABS: BASOPHILS % (AUTO) 0.7 % (0.0-2.0); HEMATOCRIT 35.2 % (41-53); HEMOGLOBIN 11.6 g/dL (13.5-17.5); LYMPHOCYTES # (AUTO) 1.4 K/uL (1.0-4.8); LYMPHOCYTES % (AUTO) 30.9 % (22.0-44.0); MEAN CORPUSCULAR HEMOGLOBIN 30.1 pg (26.0-34.0); MEAN CORPUSCULAR HGB CONC 32.9 G/dL (31.0-37.0); MEAN CORPUSCULAR VOLUME 91 fL (80-100); MONOCYTES # (AUTO) 0.6 K/uL (0.1-1.0); MONOCYTES % (AUTO) 12.7 % (2.0-9.0); NEUTROPHILS # (AUTO) 2.4 K/uL (1.8-7.7); NEUTROPHILS % (AUTO) 51.7 % (40.0-70.0); RED BLOOD CELL COUNT(AUTO) 3.85 MIL/uL (4.50-5.90); RED CELL DISTRIBUTION WIDTH 17.8 % (11.5-14.5)
[2023-03-29 00:46] LABS: B-TYPE NATRIURETIC PEPTIDE 155 pg/mL (0-100)
[2023-03-29 01:01] LABS: ALANINE AMINOTRANSFERASE 26 U/L (12-78); ALBUMIN 2.5 g/dL (3.4-5.0); ALKALINE PHOSPHATASE 232 U/L (46-116); ASPARTATE AMINOTRANSFERASE 49 U/L (15-37); BILIRUBIN,TOTAL 1.3 mg/dL (0.1-1.0); CREATINE KINASE, TOTAL ONLY 362 U/L (39-308); TOTAL PROTEIN, SERUM 6.5 g/dL (6.4-8.2)
[2023-03-29 01:02] LABS: PLATELET COUNT (AUTO) 80 K/uL (150-450)
[2023-03-29 03:55] VITALS: BP 109/78; PULSE 69; RESP 16; TEMP 97.7
== END 2023-03-29 03:59 | disposition home or self-care (01) ==
LOC: EMS 21:16
DX: R55 Syncope and collapse (principal); M25.552 Pain in left hip
CPT/HCPCS: 80053; 82550; 83880; 84484; 85025; 36415; 99285; 93005; 71045; 73503; 70450; 72125; Q0162